=== PATIENT | male | born 1990 | race Caucasian/White ===

== ENCOUNTER 2018-06-30 08:50 | Emergency (ER) | payer OTHER ==
[~2018-06-30] VITALS: Ht 175.3 cm; Wt 70.8 kg
[2018-06-30 08:55] VITALS: Ht 175.3 cm; Wt 70.8 kg
[2018-06-30 10:38] LABS: BASOPHIL % 0.2 % (0-2); PLATELET COUNT 244 x10^3mcL (130-400); RED CELL DISTRIBUTION WIDTH 12.9 % (11.5-14.5)
[2018-06-30 10:49] LABS: AMPHETAMINE QUAL UR NONE DETECTED (See below)
[2018-06-30 11:26] LABS: ALBUMIN 4.5 g/dL (3.4-5.0); ALKALINE PHOSPHATASE 96 U/L (46-116); ALT/SGPT 38 U/L (16-63); AST/SGOT 26 U/L (15-37); BILIRUBIN TOTAL 0.89 mg/dL (0.20-1.00); CALCIUM 9.1 mg/dL (8.5-10.1); CARBON DIOXIDE 27.6 mmol/L (21-32); CHLORIDE SERUM 101 mmol/L (98-107); CREATININE SERUM 0.9 mg/dL (0.7-1.3); GFR1 > 60 mL/min; GLUCOSE SERUM 90 mg/dL (74-106); POTASSIUM SERUM 3.6 mmol/L (3.5-5.1); SODIUM SERUM 138 mmol/L (136-145); TOTAL PROTEIN, SERUM 7.5 g/dL (6.4-8.2)
[2018-07-01 08:07] VITALS: BP 134/76
== END 2018-07-01 08:07 | disposition home or self-care (01) ==
LOC: ED 08:50
PROVIDERS: Emergency Medicine
DX: F31.9 Bipolar disorder, unspecified (principal); F12.20 Cannabis dependence, uncomplicated; F17.210 Nicotine dependence, cigarettes, uncomplicated; Z91.013 Allergy to seafood; Z88.8 Allergy status to other drugs, medicaments and biological substances; Z88.2 Allergy status to sulfonamides
CPT/HCPCS: 36415; G0480; J2060

== ENCOUNTER 2018-08-09 14:50 | Emergency (ER) | payer OTHER ==
[~2018-08-09] VITALS: Ht 175.3 cm; Wt 68.0 kg
[2018-08-09 14:58] VITALS: Ht 175.3 cm; Wt 68.0 kg
[2018-08-09 18:47] LABS: BASOPHIL % 0.4 % (0-2); PLATELET COUNT 252 x10^3mcL (130-400)
[2018-08-09 18:55] LABS: CALCIUM 9.3 mg/dL (8.5-10.1); CARBON DIOXIDE 34.6 mmol/L (21-32); CHLORIDE SERUM 106 mmol/L (98-107); GFR1 > 60 mL/min; GLUCOSE SERUM 75 mg/dL (74-106); SODIUM SERUM 145 mmol/L (136-145)
[2018-08-09 19:00] LABS: ALBUMIN 4.3 g/dL (3.4-5.0); ALKALINE PHOSPHATASE 92 U/L (46-116); ALT/SGPT 23 U/L (16-63); AST/SGOT 11 U/L (15-37); BILIRUBIN TOTAL 0.32 mg/dL (0.20-1.00); MAGNESIUM 2.4 mg/dL (1.8-2.4); TOTAL PROTEIN, SERUM 7.7 g/dL (6.4-8.2)
[2018-08-09 19:10] LABS: FREE T4 0.75 ng/dL (0.76-1.46); FREE THYROXINE INDEX 2.6 ug/dL (1.4-4.5); T4(THYROXINE) 7.6 ug/dL (4.7-13.3)
[2018-08-09 19:13] LABS: T3 TOTAL 0.96 ng/mL
[2018-08-09 19:19] LABS: AMPHETAMINE QUAL UR NONE DETECTED (See below)
[2018-08-09 21:19] VITALS: BP 149/79
== END 2018-08-09 21:19 | disposition home or self-care (01) ==
LOC: ED 14:50
PROVIDERS: Emergency Medicine
DX: R53.1 Weakness (principal); R19.7 Diarrhea, unspecified; F32.9 Major depressive disorder, single episode, unspecified; F41.9 Anxiety disorder, unspecified; Z88.2 Allergy status to sulfonamides; Z91.02 Food additives allergy status
CPT/HCPCS: 84439; J7030

== ENCOUNTER 2019-07-09 06:36 | Emergency (ER) | payer OTHER ==
[~2019-07-09] VITALS: Ht 170.2 cm; Wt 65.8 kg
[2019-07-09 06:39] VITALS: Ht 170.2 cm; Wt 65.8 kg
[2019-07-09 07:44] VITALS: BP 142/99
== END 2019-07-09 07:52 | disposition other institution (70) ==
LOC: ED 06:36
DX: F41.9 Anxiety disorder, unspecified (principal); R00.0 Tachycardia, unspecified; F32.9 Major depressive disorder, single episode, unspecified

== ENCOUNTER 2019-07-10 02:15 | Emergency (ER) | payer OTHER ==
[~2019-07-10] VITALS: Ht 170.2 cm; Wt 74.0 kg
[2019-07-10 02:33] VITALS: Ht 170.2 cm; Wt 74.0 kg
[2019-07-10 05:17] VITALS: BP 134/90
== END 2019-07-10 05:17 | disposition home or self-care (01) ==
LOC: ED 02:15
DX: F20.9 Schizophrenia, unspecified (principal); F12.10 Cannabis abuse, uncomplicated; F11.10 Opioid abuse, uncomplicated; F32.9 Major depressive disorder, single episode, unspecified; F41.9 Anxiety disorder, unspecified; Z76.0 Encounter for issue of repeat prescription; Z91.013 Allergy to seafood; Z88.2 Allergy status to sulfonamides

== ENCOUNTER 2019-07-18 02:19 | Emergency (ER) | payer OTHER ==
[~2019-07-18] VITALS: Ht 170.2 cm; Wt 74.8 kg
[2019-07-18 02:27] VITALS: Ht 170.2 cm; Wt 74.8 kg
[2019-07-18 03:33] VITALS: BP 130/91
== END 2019-07-18 03:33 | disposition home or self-care (01) ==
LOC: ED 02:19
DX: F41.9 Anxiety disorder, unspecified (principal); F20.9 Schizophrenia, unspecified; Z88.2 Allergy status to sulfonamides; Z91.013 Allergy to seafood